=== PATIENT | female | born 1950 | race Caucasian/White ===

== ENCOUNTER 2021-03-23 17:12 | Inpatient (IN) | payer MEDICARE, OTHER ==
[~2021-03-23] VITALS: Ht 170.2 cm; Wt 89.8 kg
[~2021-03-23 17:12] MED LIST: AMBIEN10 MG PO; CLARITIN10 MG PO; COLCHICINE 0.60.6 MG PO; ECOTRIN81 MG PO; GLUCOTROL5 MG PO; LOPRESSOR50 MG PO; NEURONTIN 100100 MG PO; NORCO 10-325 T1 EACH PO; OMEPRAZOLE40 MG PO; OMNICEF 300 MG300 MG PO; PAXIL40 MG PO; RISPERDAL3 MG PO; TESSALON PERLE100 MG PO; VASOTEC 5 MG TAB5 MG PO; XANAX1 MG PO; XARELTO20 MG PO; ZESTRIL 40 MG T40 MG PO; ZITHROMAX250 MG PO
[2021-03-23 18:03] LABS: HEMOGLOBIN 11.8 gm/dl (12.3-15.3); RED BLOOD COUNT 4.58 M/UL (4.00-5.10); WHITE BLOOD COUNT 8.7 K/UL (4.5-11.0)
[2021-03-23 18:14] LABS: BUN/CREATININE RATIO 15 (0-10)
[2021-03-23] MEDS ORDERED: FERROUS GLUCON324 M2 PO (21:55)
[2021-03-23] MEDS ORDERED: ESCITALOPRAM OX10 MG PO (21:56)
[2021-03-23] MEDS ORDERED: ZOCOR 40 MG TAB40 MG PO (21:56)
[2021-03-23] MEDS ORDERED: PREDNISONE5 MG PO (21:56)
[2021-03-23] MEDS ORDERED: MISOPROSTOL200 MCG PO (21:56)
[2021-03-23] MEDS ORDERED: LEVOTHYROXINE75 MCG PO (21:57)
[2021-03-23] MEDS ORDERED: LISINOPRIL40 MG PO (21:57)
[2021-03-23] MEDS ORDERED: ZYLOPRIM 100 M100 MG PO (21:57)
[2021-03-23] MEDS ORDERED: VITAMIN D21250 MCG PO (21:59)
[2021-03-24 03:34] LABS: HEMOGLOBIN 10.3 gm/dl (12.3-15.3)
[2021-03-24 03:40] LABS: RED BLOOD COUNT 4.09 M/UL (4.00-5.10); WHITE BLOOD COUNT 5.9 K/UL (4.5-11.0)
[2021-03-24 03:57] LABS: BUN/CREATININE RATIO 18 (0-10)
[2021-03-25 05:56] LABS: HEMOGLOBIN 10.6 gm/dl (12.3-15.3); RED BLOOD COUNT 4.17 M/UL (4.00-5.10); WHITE BLOOD COUNT 5.4 K/UL (4.5-11.0)
[2021-03-25 06:14] LABS: BUN/CREATININE RATIO 17 (0-10)
[2021-03-26 06:48] LABS: HEMOGLOBIN 10.2 gm/dl (12.3-15.3); WHITE BLOOD COUNT 5.1 K/UL (4.5-11.0)
[2021-03-26 07:04] LABS: BUN/CREATININE RATIO 15 (0-10)
== END 2021-03-26 16:35 | disposition home or self-care (01) | DRG 689 ==
LOC: ER1 17:12 → CDU 18:55 → PROG CARE 18:55
PROVIDERS: Emergency Medicine; Internal Medicine; ADMIT Internal Medicine
PROC: B24BZZZ Ultrasonography of Heart with Aorta (ICD-10-PCS; principal; 2021-03-24)
PROC: 4A023N7 Measurement of Cardiac Sampling and Pressure, Left Heart, Percutaneous Approach (ICD-10-PCS; 2021-03-26)
PROC: B2111ZZ Fluoroscopy of Multiple Coronary Arteries using Low Osmolar Contrast (ICD-10-PCS; 2021-03-26)
DX: N30.00 Acute cystitis without hematuria (principal); I21.A1 Myocardial infarction type 2; I50.23 Acute on chronic systolic (congestive) heart failure; Z20.822 Contact with and (suspected) exposure to COVID-19; G93.41 Metabolic encephalopathy; I11.0 Hypertensive heart disease with heart failure; E78.5 Hyperlipidemia, unspecified; E11.9 Type 2 diabetes mellitus without complications; E03.9 Hypothyroidism, unspecified; M19.90 Unspecified osteoarthritis, unspecified site; M10.9 Gout, unspecified; M32.9 Systemic lupus erythematosus, unspecified; D64.9 Anemia, unspecified; E87.6 Hypokalemia; G47.00 Insomnia, unspecified; K21.9 Gastro-esophageal reflux disease without esophagitis; E66.9 Obesity, unspecified; F41.1 Generalized anxiety disorder; I25.10 Atherosclerotic heart disease of native coronary artery without angina pectoris; I08.2 Rheumatic disorders of both aortic and tricuspid valves; I27.20 Pulmonary hypertension, unspecified; Z98.890 Other specified postprocedural states; Z82.49 Family history of ischemic heart disease and other diseases of the circulatory system; Z86.711 Personal history of pulmonary embolism; Z86.718 Personal history of other venous thrombosis and embolism; Z79.890 Hormone replacement therapy; Z90.49 Acquired absence of other specified parts of digestive tract; Z85.038 Personal history of other malignant neoplasm of large intestine; Z82.3 Family history of stroke; Z79.82 Long term (current) use of aspirin; Z88.2 Allergy status to sulfonamides; Z88.1 Allergy status to other antibiotic agents; I25.2 Old myocardial infarction; Z68.32 Body mass index [BMI] 32.0-32.9, adult
CPT/HCPCS: ECHO; 0240U; 36415; 70450; 71045; 80048; 80053; 81001; 82550; 82553; 82962; 83690; 83735; 83874; 83880; 84100; 84484; 85025; 85610; 85730; 93005; 93306; 96374; 99152; 99285; C1769; J0696; J1644; J1940; J2250; J2270; J2405; J3010; J3475; J7030; Q9967

== ENCOUNTER → 2021-09-12 | Outpatient (CLI) | payer MEDICARE, OTHER ==
[~2021-09-12] MED LIST changes: +ESCITALOPRAM OX10 MG PO; +FERROUS GLUCON324 M2 PO; +LEVOTHYROXINE75 MCG PO; +LISINOPRIL40 MG PO; +MISOPROSTOL200 MCG PO; +PREDNISONE5 MG PO; +VITAMIN D21250 MCG PO; +ZOCOR 40 MG TAB40 MG PO; +ZYLOPRIM 100 M100 MG PO
== END ==
LOC: EXRD 11:35
DX: Z86.711 Personal history of pulmonary embolism (principal)
CPT/HCPCS: 71046

== ENCOUNTER → 2021-10-20 | Outpatient (CLI) | payer MEDICARE, OTHER ==
[~2021-10-20] VITALS: Ht 170.2 cm; Wt 90.7 kg
== END ==
LOC: EROP 14:05
DX: U07.1 COVID-19 (principal); Z23 Encounter for immunization; D84.9 Immunodeficiency, unspecified; Z88.8 Allergy status to other drugs, medicaments and biological substances; Z88.2 Allergy status to sulfonamides
CPT/HCPCS: M0247; Q0247